=== PATIENT | male | born 1960 | race African-American/Black ===

== ENCOUNTER 2018-03-23 11:39 | Inpatient (IN) ==
[2018-03-23] MEDS ORDERED: *HR* FentaNYL (PF) 100 MCG/2 ML VIAL IVP ONE (11:46)
[2018-03-23] MEDS ORDERED: Isovue-370 500 ML INFUS..BTL IV ONE (11:46)
--- NOTE | 2018-03-23 12:04 | Emergency Department Note ---
Disposition Clinical Impression: Small bowel obstruction Abdominal pain Qualifiers: Abdominal location: right lower quadrant Qualified Code(s): R10.31 - Right lower quadrant pain Disposition: Admitted As Inpatient Condition: Good Referrals: Heriberto Whittington MD [Primary Care Provider] - Forms: ED Satisfaction Letter, Work/School Release Time of Disposition: 15:46 General Adult HPI - General Chief complaint: ED Abdominal Pain Stated complaint: Abdominal Pain Time Seen by Provider: 03/23/18 11:45 Source: EMS Mode of arrival: EMS Limitations: no limitations - History of Present Illness HPI Narrative: This is a 57-year-old male brought by EMS from the [facility] because of significant abdominal pain. He has a history of esophageal cancer, and had a PEG tube placed yesterday. It appears that his right lower quadrant pain has developed or worsened since the PEG tube was placed. Pain Scale: 10 - Related Data Home Medications Medication Instructions Recorded Confirmed Aspirin [Lo-Dose Aspirin EC] 81 mg PO DAILY 01/27/18 03/23/18 Previous Rx's Medication Instructions Recorded HydrOXYzine Pamoate [Vistaril] 50 mg PO DAILY PRN #30 capsule 03/08/18 OxyCODONE/APAP 5/325 [Percocet 1 each PO Q8HR PRN 30 Days #90 03/08/18 5/325 MG] tablet Dexamethasone [Decadron] 4 mg PO BID PRN #42 tab 03/12/18 Magic Mouthwash [Magic Mouthwash 10 ml PO QID PRN #240 ml 03/12/18 BLM] Ondansetron [Zofran ODT] 8 mg SL Q8H PRN #60 tab 03/12/18 Prochlorperazine Maleate 10 mg PO Q6HR PRN #90 tablet 03/12/18 [Compazine] Allergies Allergy/AdvReac Type Severity Reaction Status Date / Time acetaminophen [From Vicodin] AdvReac Nausea Verified 03/23/18 08:12 hydrocodone [From Vicodin] AdvReac Nausea Verified 03/23/18 08:12 All systems ED: reviewed and negative except as stated. Gastrointestinal: Reports: abdominal pain Past Medical History - Past Medical History Medical history: Reports: cancer Psychiatric history: Reports: no psych history - Social History Smoking Status: Former smoker Smokeless Tobacco Status: No Alcohol use: Reports: occasionally Drug use: Reports: marijuana Physical Exam - General Limitations: no limitations General appearance: alert, in distress (In moderate distress from abdominal pain ) - Head Head exam: atraumatic, normocephalic, normal inspection - Eye Eye exam: Present: normal appearance, PERRL, EOMI - Chest Chest inspection: Present: normal inspection, symmetric chest wall rise - Respiratory Respiratory exam: Present: normal lung sounds bilaterally - Cardiovascular Cardiovascular exam: Present: normal rhythm, bradycardia, normal heart sounds - Abdominal Exam Abdominal exam: Present: soft, tenderness (There is diffuse abdominal tenderness but the right lower quadrant appears to be the worst, also with left lower quadrant tenderness and much less upper quadrant tenderness) - Extremities Exam Extremities exam: Present: normal inspection, full ROM. Absent: tenderness, pedal edema - Neurological Exam Neurological exam: Present: alert, oriented X3, CN II-XII intact - Psychiatric Psychiatric exam: Present: normal affect, normal mood - Skin Skin exam: Present: warm, dry, intact, normal color Course Course Narrative: This is a 57-year-old male with a new PEG tube placed yesterday now with significant right lower quadrant tenderness concerning for new pathology or iatrogenic injury. Vital Signs Temperature 97.9 F 03/23/18 11:43 Pulse Rate 56 03/23/18 11:43 Respiratory Rate 18 03/23/18 11:43 Blood Pressure 139/89 03/23/18 11:43 O2 Sat by Pulse Oximetry 97 03/23/18 11:43 Temperature 97.9 F 03/23/18 11:43 Pulse Rate 56 03/23/18 11:43 Respiratory Rate 18 03/23/18 11:43 Blood Pressure 139/89 03/23/18 11:43 O2 Sat by Pulse Oximetry 97 03/23/18 11:43 Oxygen Delivery Oxygen Delivery Room Air Medical Decision Making - MDM Narrative Medical decision making narrative: This is a 57-year-old male who appears to have a possible small bowel obstruction. I discussed his case with the on-call hospitalist, who accepted him for admission I discussed his case with Dr. Nichols, the on-call surgeon, who stated that he will see him. - Lab Data Lab results reviewed: Yes I reviewed the patient's lab results. Lab results narrative: CBC was unremarkable BMP showed slight hyponatremia at 132 Lactate was normal at 0.9 Result diagrams: 03/23/18 11:56 03/23/18 11:56 Lab Results 03/23/18 03/23/18 03/23/18 Range/Units 11:56 11:56 11:56 WBC 8.6 (4.3-11.1) K/mcL RBC 4.70 (4.19-5.50) M/mcL Hgb 13.8 (12.9-16.9) g/dL Hct 42.4 (37.5-50.1) % MCV 90.2 (83.0-100.0) fL MCH 29.4 (28.0-33.3) pg MCHC 32.5 (31.6-35.5) g/dL RDW 13.3 (11.5-14.5) % Plt Count 246 (140-400) K/mcL MPV 8.6 L (9.4-12.4) fL Immature Gran % 0.4 (0-4) % Seg Neutrophils % 86.3 % Lymphocytes % 9.4 % Monocytes % 3.5 % Eosinophils % 0.2 % Basophils % 0.2 % Neutrophils # 7.4 (1.6-8.9) K/mcL Lymphocytes # 0.8 (0.6-4.6) K/mcL Monocytes # 0.3 (0.0-1.3) K/mcL Eosinophils # 0.0 (0.0-0.6) K/mcL Basophils # 0.0 (0.0-0.2) K/mcL Sodium 132 L (136-145) mEq/L Potassium 4.4 (3.5-5.1) mEq/L Chloride 101 (98-107) mEq/L Carbon Dioxide 26 (23-29) mEq/L BUN 19 (6-20) mg/dL Creatinine 0.81 (0.70-1.30) mg/dL Est GFR ( Amer) > 60 (> 60) Est GFR (Non-Af Amer) > 60 (> 60) BUN/Creatinine Ratio 23 (6-26) Glucose 185 H (70-105) mg/dL Calculated Osmolality 281 (280-300) Lactic Acid 0.9 (0.5-2.2) mmol/L Calcium 9.3 (8.6-10.3) mg/dL - Radiology Data Radiology results reviewed: Yes I reviewed the patient's radiology results. CT was concerning for a partial small bowel obstruction with no transition point Critical Care Time Critical Care Time: No
[2018-03-23 12:09] LABS: Basophils % 0.2 %; Eosinophils % 0.2 %; Hematocrit 42.4 % (37.5-50.1); Hemoglobin 13.8 g/dL (12.9-16.9); Immature Granulocytes % 0.4 % (0-4); Lymphocytes # 0.8 K/mcL (0.6-4.6); Lymphocytes % 9.4 %; Mean Corpuscular HGB Conc 32.5 g/dL (31.6-35.5); Mean Corpuscular Hemoglobin 29.4 pg (28.0-33.3); Mean Corpuscular Volume 90.2 fL (83.0-100.0); Mean Platelet Volume 8.6 fL (9.4-12.4); Monocytes # 0.3 K/mcL (0.0-1.3); Monocytes % 3.5 %; Neutrophils # 7.4 K/mcL (1.6-8.9); Platelet Count 246 K/mcL (140-400); Red Cell Distribution Width 13.3 % (11.5-14.5); Segmented Neutrophils % 86.3 %
[2018-03-23 12:29] LABS: BUN/Creatinine Ratio 23 (6-26); Blood Urea Nitrogen 19 mg/dL (6-20); Calcium 9.3 mg/dL (8.6-10.3); Carbon Dioxide 26 mEq/L (23-29); Chloride 101 mEq/L (98-107); Glucose 185 mg/dL (70-105); Osmolality,Calculated 281 (280-300); Potassium 4.4 mEq/L (3.5-5.1); Sodium 132 mEq/L (136-145); eGFR For Non-African Americans > 60 (> 60)
[2018-03-23] MEDS ORDERED: Naloxone 0.4 MG/ML INJ IVP PRN (16:57)
[2018-03-23] MEDS ORDERED: Acetaminophen 325 MG TABLET PO PRN (16:57)
[2018-03-23] MEDS ORDERED: *HR* OxyCODONE Immed Rel 5 MG TABLET PO PRN (16:57)
[2018-03-23] MEDS ORDERED: *HR* HYDROcodone/Acet 5/325 mg TABLET PO PRN (16:57)
[2018-03-23] MEDS ORDERED: Ondansetron 4 MG/2 ML VIAL IVP PRN (17:08)
[2018-03-23] MEDS ORDERED: Ketorolac 30 MG/ML VIAL IVP PRN (17:08)
[2018-03-23] MEDS ORDERED: Magic Mouthwash 10 ML UD Cup PO PRN (17:15)
[2018-03-23] MEDS ORDERED: hydrOXYzine pamoate 25 MG CAPSULE PO PRN (17:15)
--- NOTE | 2018-03-23 17:44 | Internal Med History&Physical ---
<Esperanza Rhoades - Last Filed: 03/23/18 17:40> Date of Encounter: 03/23/18 Time of Encounter: 04:30 Internal Medicine - H&P: HPI Chief complaint: Abdominal pain History of present illness: Mr. Carrillo is a 57 year old male with past medical history of laryngeal squamous cell carcinoma diagnosed 02/04/18. Denies any other medical history. Patient presented from [facility] to ED for severe abdominal pain. Patient states the pain started yesterday after PEG tube placement and progressively worsened. Reports it is sharp pain 8/10 that worsens with movement. Indicates pain at infraumbilical region. Patient has passed gas but had no bowel movements since PEG placement. Reports has not eaten since PEG placement. Admits one episode of emesis. Admits feeling bloated. Admits dry mouth. Denies nausea. Denies bleeding. Denies weakness, dizziness. Denies shortness of breath. Past Med Surg Social Fam HX - Past Medical History Medical history: cancer Additional medical history: throat CA Psychiatric history: no psych history - Past Surgical History Additional surgical history: g tube placement. sinus surgery - Social History Smoking Status: Former smoker Smokeless Tobacco Status: No Alcohol use: occasionally Drug use: marijuana Internal Medicine - H&P: Meds Aspirin [Lo-Dose Aspirin EC] 81 mg PO DAILY 01/27/18 [History] HydrOXYzine Pamoate [Vistaril] 50 mg PO DAILY PRN #30 capsule 03/08/18 [Rx] OxyCODONE/APAP 5/325 [Percocet 5/325 MG] 1 each PO Q8HR PRN 30 Days #90 tablet 03/08/18 [Rx] Dexamethasone [Decadron] 4 mg PO BID PRN #42 tab 03/12/18 [Rx] Magic Mouthwash [Magic Mouthwash BLM] 10 ml PO QID PRN #240 ml 03/12/18 [Rx] Ondansetron [Zofran ODT] 8 mg SL Q8H PRN #60 tab 03/12/18 [Rx] Prochlorperazine Maleate [Compazine] 10 mg PO Q6HR PRN #90 tablet 03/12/18 [Rx] 3 Allergy/AdvReac Type Severity Reaction Status Date / Time acetaminophen [From Vicodin] AdvReac Nausea Verified 03/23/18 08:12 hydrocodone [From Vicodin] AdvReac Nausea Verified 03/23/18 08:12 All Systems PM: A 10-system review of systems was performed and is negative for pertinent findings except as documented above in the HPI. Review of systems: ROS stated above. - Constitutional Vitals: Temp Pulse Resp BP Pulse Ox 97.9 F 56 18 139/89 97 03/23/18 11:43 03/23/18 11:43 03/23/18 11:43 03/23/18 11:43 03/23/18 11:43 Exam: General: Normal body habitus. Alert and oriented x3. No acute distress. Head: atraumatic, normocephalic. Eye: pupils equal and round. Sclera anicteric. EOMI. Mouth: oral mucosa moist. Normal oropharynx. Neck: supple. Trachea midline. Lungs: CTAB. No rhonchi, rales or wheezes. No respiratory distress. Cardiovascular: Normal S1 & S2. No rubs or gallops. No JVD. Pulse regular. Abdomen: Soft. Normal bowel sounds. Nondistended, no rigidity. Diffusely tender to palpation, worst at RUQ. No rebound. Extremities: No deformity, edema or tenderness, no joint swelling or clubbing. Skin: warm, dry, and intact. Internal Med - H&P Results - Labs CBC & Chem 7: 03/23/18 11:56 03/23/18 11:56 - Assessment and plan (1) Small bowel obstruction Current Visit: Yes Status: Acute Assessment and plan: Presented with abdominal pain after PEG tube placement 03/22. Lactic acid normal. CT abd/pelvis showed multiple dilated jejunal loops. Partial obstruction from internal hernia vs ileus. Trace pneumoperitoneum. PEG tube in place. Surgery consulted. Await recommendation. NPO. IVF. Pain control. (2) Laryngeal cancer Current Visit: No Status: Acute Assessment and plan: Laryngeal squamous cell carcinoma diagnosed 02/04/18. History of smoking. Recently quit. Follows at [facility]. Had first chemotherapy treatment with cisplastin on 03/23. First radiation treatment scheduled for 03/24. (3) Abdominal pain Current Visit: Yes Status: Acute Assessment and plan: Secondary to SBO. See above. Qualifiers: Abdominal location: lower abdomen, unspecified Qualified Code(s): R10.30 - Lower abdominal pain, unspecified - Time Spent With Patient Total time spent is greater than 50% in coordination of care (as documented) at patient's floor/unit and/or counseling patient: <Huseyin Andrade - Last Filed: 03/23/18 18:02> Date of Encounter: 03/23/18 Internal Medicine - H&P: [facility] History of present illness: Mr. Carrillo is a 57 year old male All Systems PM: A 10-system review of systems was performed and is negative for pertinent findings except as documented above in the HPI. - Constitutional Vitals: Temp Pulse Resp BP Pulse Ox 97.9 F 56 18 112/70 97 03/23/18 11:43 03/23/18 11:43 03/23/18 17:42 03/23/18 17:42 03/23/18 11:43 Internal Med - H&P Results - Labs CBC & Chem 7: 03/23/18 11:56 03/23/18 11:56 - Assessment and plan (1) Laryngeal cancer Current Visit: No Status: Acute (2) Small bowel obstruction Current Visit: Yes Status: Acute (3) Abdominal pain Current Visit: Yes Status: Acute Qualifiers: Abdominal location: lower abdomen, unspecified Qualified Code(s): R10.30 - Lower abdominal pain, unspecified - Time Spent With Patient Total time spent is greater than 50% in coordination of care (as documented) at patient's floor/unit and/or counseling patient: - Attending Attestation Seen and assessed. Agree with plan per resident 57-year-old male brought by EMS from the cancer center because of significant abdominal pain. He has a history of esophageal cancer, and had a PEG tube placed yesterday. It appears that his right lower quadrant pain has developed or worsened since the PEG tube was placed. Exam General: Normal body habitus. Alert and oriented x3. No acute distress. Head: atraumatic, normocephalic. Eye: pupils equal and round. Sclera anicteric. EOMI. Mouth: oral mucosa moist. Normal oropharynx. Neck: supple. Trachea midline. Lungs: CTAB. No rhonchi, rales or wheezes. No respiratory distress. Cardiovascular: Normal S1 & S2. No rubs or gallops. No JVD. Pulse regular. Abdomen: Soft. Normal bowel sounds. Nondistended, no rigidity. Diffusely tender to palpation, worst at RUQ. No rebound. Extremities: No deformity, edema or tenderness, no joint swelling or clubbing. Plan Small bowel obstruction. NPO, IV fluids. Follow surgery recs DVT prophylaxis. Heparin
[2018-03-23] MEDS: *HR* Heparin 5,000 UNIT/ML VIAL SQ SCH (18:49)
[2018-03-23] MEDS: 0.9 % Sodium Chloride 1,000 ML IVC SCH (18:49)
[2018-03-23] MEDS: OXYCODONE Oral CONC 10 MG/0.5 ML ORAL.SYG SL PRN (18:59)
[2018-03-24] MEDS: OXYCODONE Oral CONC 10 MG/0.5 ML ORAL.SYG SL PRN ×4 (01:33→23:34)
[2018-03-24] MEDS: 0.9 % Sodium Chloride 1,000 ML IVC SCH (02:59)
[2018-03-24] MEDS: *HR* Heparin 5,000 UNIT/ML VIAL SQ SCH ×2 (06:04→18:39)
[2018-03-24] MEDS: Aspirin Enteric Coated 81 MG Tablet PO SCH (08:35)
[2018-03-24 08:42] LABS: Basophils % 0.1 %; Hematocrit 37.7 % (37.5-50.1); Hemoglobin 12.5 g/dL (12.9-16.9); Immature Granulocytes % 0.3 % (0-4); Lymphocytes # 2.1 K/mcL (0.6-4.6); Lymphocytes % 18.7 %; Mean Corpuscular HGB Conc 33.2 g/dL (31.6-35.5); Mean Corpuscular Hemoglobin 29.4 pg (28.0-33.3); Mean Corpuscular Volume 88.7 fL (83.0-100.0); Mean Platelet Volume 9.1 fL (9.4-12.4); Monocytes # 1.2 K/mcL (0.0-1.3); Monocytes % 10.9 %; Neutrophils # 7.8 K/mcL (1.6-8.9); Platelet Count 248 K/mcL (140-400); Red Blood Count 4.25 M/mcL (4.19-5.50); Red Cell Distribution Width 13.3 % (11.5-14.5)
[2018-03-24 08:59] LABS: BUN/Creatinine Ratio 25 (6-26); Blood Urea Nitrogen 19 mg/dL (6-20); Calcium 8.9 mg/dL (8.6-10.3); Carbon Dioxide 27 mEq/L (23-29); Chloride 105 mEq/L (98-107); Glucose 116 mg/dL (70-105); Magnesium 2.1 mg/dL (1.6-2.6); Osmolality,Calculated 283 (280-300); Phosphorous 2.5 mg/dL (2.7-4.5); Potassium 4.2 mEq/L (3.5-5.1); Sodium 135 mEq/L (136-145); eGFR For Non-African Americans > 60 (> 60)
--- NOTE | 2018-03-24 09:11 | Internal Med Progress Note ---
<Efren Bush - Last Filed: 03/24/18 09:58> Hospitalist Progress Note - Encounter Date of Encounter: 03/24/18 Time of Encounter: 09:10 - Subjective Interval History: 57 y/o pleasant male is seen and evaluated at bedside. Pt is A&Ox3 and has improved energy. Pt reports significantly lessened pain in his abdomen, mostly localized to the LUQ slightly exacerbated by movement. Pt denies nausea, vomiting, or dizziness. Surgical Consult Pending Pt is NPO - Exam Vitals: Temp Pulse Resp BP Pulse Ox 98.4 F 60 18 113/65 95 03/24/18 06:28 03/24/18 06:28 03/24/18 06:28 03/24/18 06:28 03/24/18 06:28 Exam: General: Pt appears fatigued with normal body habitus. Head: Normocephalic. Atraumatic. Mouth: Mouth appears dry. Normal oropharynx CV: RRR. No murmurs rubs or gallops. Lungs: CTAB. No rhonchi or rales. No respiratory distress Abdomen: Bowel sounds present. Pain on palpation of the upper left quadrant. No distention. Extremities: No edema noted. Pulses 2+ Skin: Dry and Intact. No lesions or bruising noted. - Assessment and Plan (1) Small bowel obstruction Current Visit: Yes Status: Acute Assessment and Plan: Pt presented with increasing abdominal pain starting (03/22) after placement of PEG tube for chemo tx Pain is localized to lower regions of the abdomen and worsens with movement Lactic Acid WNL (0.9) CT of abdomen and pelvis depicted multiple dilated jejunal loops and a PEG tube in place indicative of likely small bowel obstruction Plan: Pt NPO Surgery has been consulted. Awaiting recs. Supplement with IVF Pain management with Toradol 30mg IVP Q6H (2) Laryngeal cancer Current Visit: No Status: Acute Assessment and Plan: Laryngeal Squamous Cell Ca Dx 02/04/18 Pt tx at [facility] Cisplatin tx started (03/23) Radiation tx was scheduled for (03/24) but pt did not receive Pt has hx of smoking since age 19 however has recently quit (3) Abdominal pain Current Visit: Yes Status: Acute Assessment and Plan: Likely secondary to SBO - Time Spent with Patient Total time spent is greater than 50% in coordination of care (as documented) at patient's floor/unit and/or counseling patient: Greater than 35 minutes Plan of Care Discussed with: patient Internal Medicine: Result - Labs CBC & Chem 7: 03/24/18 08:08 03/24/18 08:08 Labs: Short CBC 03/24/18 Range/Units 08:08 WBC 11.1 (4.3-11.1) K/mcL Hgb 12.5 L (12.9-16.9) g/dL Hct 37.7 (37.5-50.1) % Plt Count 248 (140-400) K/mcL Neutrophils # 7.8 (1.6-8.9) K/mcL BMP 03/24/18 08:08 Sodium 135 L Potassium 4.2 Chloride 105 Carbon Dioxide 27 BUN 19 Creatinine 0.75 Glucose 116 H Calcium 8.9 Consult Discharge Plan - Plan Referrals: Heriberto Whittington MD [Primary Care Provider] - Jean David MD [Partnered Physician] - 03/29/18 8:45 am <Huseyin Andrade - Last Filed: 03/24/18 13:58> Hospitalist Progress Note - Encounter Date of Encounter: 03/24/18 - Exam Vitals: Temp Pulse Resp BP Pulse Ox 97.6 F 58 17 127/61 95 03/24/18 10:09 03/24/18 10:09 03/24/18 10:09 03/24/18 10:09 03/24/18 10:09 - Assessment and Plan (1) Laryngeal cancer Current Visit: No Status: Acute (2) Small bowel obstruction Current Visit: Yes Status: Acute (3) Abdominal pain Current Visit: Yes Status: Acute - Time Spent with Patient Total time spent is greater than 50% in coordination of care (as documented) at patient's floor/unit and/or counseling patient: Internal Medicine: Result - Labs CBC & Chem 7: 03/24/18 08:08 03/24/18 08:08 Labs: Short CBC 03/24/18 Range/Units 08:08 WBC 11.1 (4.3-11.1) K/mcL Hgb 12.5 L (12.9-16.9) g/dL Hct 37.7 (37.5-50.1) % Plt Count 248 (140-400) K/mcL Neutrophils # 7.8 (1.6-8.9) K/mcL BMP 03/24/18 08:08 Sodium 135 L Potassium 4.2 Chloride 105 Carbon Dioxide 27 BUN 19 Creatinine 0.75 Glucose 116 H Calcium 8.9 - Attending Attestation 57 year old male with past medical history of laryngeal squamous cell carcinoma diagnosed 02/04/18. Denies any other medical history. Patient presented from [facility] to ED for severe abdominal pain. Patient states the pain started yesterday after PEG tube placement and progressively worsened. Reports it is sharp pain 01/22 that worsens with movement General: Normal body habitus. Alert and oriented x3. No acute distress. Head: atraumatic, normocephalic. Eye: pupils equal and round. Sclera anicteric. EOMI. Mouth: oral mucosa moist. Normal oropharynx. Neck: supple. Trachea midline. Lungs: CTAB. No rhonchi, rales or wheezes. No respiratory distress. Cardiovascular: Normal S1 & S2. No rubs or gallops. No JVD. Pulse regular. Abdomen: Soft. Normal bowel sounds. Nondistended, no rigidity. Diffusely tender to palpation, worst at RUQ. No rebound. Extremities: No deformity, edema or tenderness, no joint swelling or clubbing. Skin: warm, dry, and intact. Plan Small bowel obstruction. NPO. IV fluids. Follow surgery recs Laryngeal cancer. Outpatient follow up with oncology <Efren Bush - Last Filed: 03/24/18 09:58> (3) Abdominal pain Qualifiers: Abdominal location: lower abdomen, unspecified Qualified Code(s): R10.30 - Lower abdominal pain, unspecified <Huseyin Andrade - Last Filed: 03/24/18 13:58> (3) Abdominal pain Qualifiers: Abdominal location: lower abdomen, unspecified Qualified Code(s): R10.30 - Lower abdominal pain, unspecified
--- NOTE | 2018-03-24 14:06 | General Surgery Consult Note ---
Date of Encounter: 03/24/18 Time of Encounter: 13:30 Assessment and Plan (1) Abdominal pain Current Visit: Yes Status: Acute No clinical evidence of bowel obstruction- patient with normal expected exam, positive flatus, no nausea/vomiting, positive bowel sounds Clear liquid diet Advance to soft diet as tolerated Daily peg tube care Surgery will sign off at this time, thank you for allowing us to participate in the care of this patient. Please call with any further questions/concerns. Qualifiers: Abdominal location: lower abdomen, unspecified Qualified Code(s): R10.30 - Lower abdominal pain, unspecified (2) Laryngeal cancer Current Visit: No Status: Acute Oncology following as outpatient History of Present Illness Consult date: 03/23/18 Reason for consult: abdominal pain Requesting physician: Huseyin Andrade History of present illness: Mr. Carrillo is a 57 year old male with a recent diagnosis of larynx cancer moderately differentiated squamous cell carcinoma. He is s/p G-tube placement with IR on 03/22/18 in preparation for his treatments. He was seen in follow-up in the cancer center on 03/23/18 and was subsequently sent to the ED for evaluation due to abdominal pain. The patient reports that the abdominal pain is located around his feeding tube site. He reports that the pain is betters today. Denies any history of nausea/ vomiting. He is passing flatus regularly. Denies any fevers/chills. Denies any recent changes in bowel habits. He was tolerating a soft diet prior to admission to the hospital. He did have a CT scan complete which was concerning for a PSBO with possible internal hernia. We have been asked to see and evaluate the patient for recommendations. Past Med Surg Social Fam HX - Past Medical History Medical history: cancer (larynx), coronary artery disease Additional medical history: throat CA Psychiatric history: no psych history - Past Surgical History Surgical History: orthopedic, other (left knee surgery, right wrist surgery), other Additional surgical history: g tube placement 03/22/18 with IR. sinus surgery - Social History Smoking Status: Former smoker Smokeless Tobacco Status: No Alcohol use: occasionally Drug use: marijuana Current living situation: Home - Independent Activity Level: Independent ambulation - Family History Mother Hx Family Endocrine Disorder: Yes (Dm) Sister Hx Family Endocrine Disorder: Yes (DM) Medications and Allergies Aspirin [Lo-Dose Aspirin EC] 81 mg PO DAILY 01/27/18 [History] HydrOXYzine Pamoate [Vistaril] 50 mg PO DAILY PRN #30 capsule 03/08/18 [Rx] OxyCODONE/APAP 5/325 [Percocet 5/325 MG] 1 each PO Q8HR PRN 30 Days #90 tablet 03/08/18 [Rx] Dexamethasone [Decadron] 4 mg PO BID PRN #42 tab 03/12/18 [Rx] Magic Mouthwash [Magic Mouthwash BLM] 10 ml PO QID PRN #240 ml 03/12/18 [Rx] Ondansetron [Zofran ODT] 8 mg SL Q8H PRN #60 tab 03/12/18 [Rx] Prochlorperazine Maleate [Compazine] 10 mg PO Q6HR PRN #90 tablet 03/12/18 [Rx] 3 Allergy/AdvReac Type Severity Reaction Status Date / Time acetaminophen [From Vicodin] AdvReac Nausea Verified 03/23/18 08:12 hydrocodone [From Vicodin] AdvReac Nausea Verified 03/23/18 08:12 Review of Systems ROS unobtainable: due to endotracheal tube (in the HPI) All systems PM: The remainder of the systems were reviewed and are negative General Surgery Exam Initial Vital Signs Temp Pulse Resp BP Pulse Ox 97.9 F 56 18 139/89 97 03/23/18 11:43 03/23/18 11:43 03/23/18 11:43 03/23/18 11:43 03/23/18 11:43 - General physical appearance well developed, well nourished, no distress - Eyes PERRL, normal ocular movement - ENT normal mucosa, atraumatic, normocephalic - Neck trachea midline - Respiratory normal respiratory effort, clear to auscultation - Cardiovascular Cardiovascular exam: Present: RRR - Abdomen Abdomen general surgery: Present: bowel sounds present, soft, tender (Around peg tube site (moderately tender), no surrounding erythema or induration, tube secure at 4cm marking; ) - Integumentary Integumentary general surgery: Present: warm and dry - Neurologic Present: CN 2-12 grossly intact - Psychiatric Psychiatric general surgery: Present: appropriate, oriented to person, oriented to place, oriented to time, speech is normal, memory intact Exam Initial Vital Signs Temp Pulse Resp BP Pulse Ox 97.9 F 56 18 139/89 97 03/23/18 11:43 03/23/18 11:43 03/23/18 11:43 03/23/18 11:43 03/23/18 11:43 Results - Labs 03/24/18 08:08 03/24/18 08:08 Abnormal lab results Hgb 12.5 g/dL (12.9-16.9) L 03/24/18 08:08 MPV 9.1 fL (9.4-12.4) L 03/24/18 08:08 Sodium 135 mEq/L (136-145) L 03/24/18 08:08 Glucose 116 mg/dL (70-105) H 03/24/18 08:08 POC Glucose 115 mg/dL (70-99) H 03/24/18 12:03 Phosphorus 2.5 mg/dL (2.7-4.5) L 03/24/18 08:08 Diabetes panel 03/24/18 Range/Units 08:08 Sodium 135 L (136-145) mEq/L Potassium 4.2 (3.5-5.1) mEq/L Chloride 105 (98-107) mEq/L Carbon Dioxide 27 (23-29) mEq/L BUN 19 (6-20) mg/dL Creatinine 0.75 (0.70-1.30) mg/dL Glucose 116 H (70-105) mg/dL Calcium 8.9 (8.6-10.3) mg/dL Calcium panel 03/24/18 Range/Units 08:08 Calcium 8.9 (8.6-10.3) mg/dL Phosphorus 2.5 L (2.7-4.5) mg/dL Pituitary panel 03/24/18 Range/Units 08:08 Sodium 135 L (136-145) mEq/L Potassium 4.2 (3.5-5.1) mEq/L Chloride 105 (98-107) mEq/L Carbon Dioxide 27 (23-29) mEq/L BUN 19 (6-20) mg/dL Creatinine 0.75 (0.70-1.30) mg/dL Glucose 116 H (70-105) mg/dL Calcium 8.9 (8.6-10.3) mg/dL Adrenal panel 03/24/18 Range/Units 08:08 Sodium 135 L (136-145) mEq/L Potassium 4.2 (3.5-5.1) mEq/L Chloride 105 (98-107) mEq/L Carbon Dioxide 27 (23-29) mEq/L BUN 19 (6-20) mg/dL Creatinine 0.75 (0.70-1.30) mg/dL Glucose 116 H (70-105) mg/dL Calcium 8.9 (8.6-10.3) mg/dL All other labs normal. - Imaging CT scan - abdomen: report reviewed CT scan - pelvis: report reviewed Additional studies: Abdomen/Pelvis CT 03/23/18 11:46 IMPRESSION: 1. Multiple dilated jejunal loops with suggestion of swirling of the small bowel mesentery on the left, potentially related to partial obstruction in the setting of an internal hernia. Alternatively, this could be related to developing ileus. No definite transition point is identified. 2. Percutaneous gastrostomy catheter in expected position. Trace pneumoperitoneum is likely related. 3. Minimal asymmetric enlargement of the superior left rectus abdominis muscle with associated tiny foci of gas, likely related to tube placement. No definite hematoma is identified. 4. Trace free fluid may be reactive. D/ / Rashawn Whipple MD / Rashawn Whipple MD Interpreting Provider: Rashawn Whipple MD Consult Discharge Plan - Plan Referrals: Heriberto Whittington MD [Primary Care Provider] - Jean David MD [Partnered Physician] - 03/29/18 8:45 am - Attending Attestation For this encounter, I have reviewed the [employer] or PA documentation, treatment plan, and medical decision making; and I have had face to face time with this patient.
[2018-03-25] MEDS: *HR* Heparin 5,000 UNIT/ML VIAL SQ SCH ×2 (06:07→19:12)
[2018-03-25] MEDS: Aspirin Enteric Coated 81 MG Tablet PO SCH (08:08)
[2018-03-25 08:32] LABS: Basophils % 0.5 %; Eosinophils # 0.1 K/mcL (0.0-0.6); Eosinophils % 0.8 %; Hematocrit 37.6 % (37.5-50.1); Hemoglobin 12.2 g/dL (12.9-16.9); Immature Granulocytes % 0.3 % (0-4); Lymphocytes # 2.8 K/mcL (0.6-4.6); Lymphocytes % 43.7 %; Mean Corpuscular HGB Conc 32.4 g/dL (31.6-35.5); Mean Corpuscular Hemoglobin 29.6 pg (28.0-33.3); Mean Corpuscular Volume 91.3 fL (83.0-100.0); Mean Platelet Volume 8.8 fL (9.4-12.4); Monocytes % 15.2 %; Neutrophils # 2.5 K/mcL (1.6-8.9); Platelet Count 233 K/mcL (140-400); Red Blood Count 4.12 M/mcL (4.19-5.50); Red Cell Distribution Width 13.2 % (11.5-14.5); Segmented Neutrophils % 39.5 %
--- NOTE | 2018-03-25 08:38 | Internal Med Progress Note ---
Hospitalist Progress Note - Encounter Date of Encounter: 03/25/18 Time of Encounter: 08:15 - Subjective Interval History: Patient seen and examined. No acute events overnight. Patient is resting comfortably in bed. Patient states he feels better. States he doesnt have abdominal pain but that hes sore at PEG tube site at level of 5/10. States he s passing gas. Had a bowel movement last night. He is on clear liquid diet which he is tolerating well. Denies nausea/vomiting. Denies fever/chills. - Exam Vitals: Temp Pulse Resp BP Pulse Ox 98.5 F 58 16 122/78 96 03/25/18 07:37 03/25/18 07:37 03/25/18 07:37 03/25/18 07:37 03/25/18 07:37 Exam: General: Normal body habitus. Alert and oriented x3. No acute distress. Head: atraumatic, normocephalic. Eye: pupils equal and round. Sclera anicteric. EOMI. Mouth: oral mucosa moist. Normal oropharynx. Neck: supple. Trachea midline. Lungs: CTAB. No rhonchi, rales or wheezes. No respiratory distress. Cardiovascular: Normal S1 & S2. No rubs or gallops. No JVD. Pulse regular. Abdomen: Soft. Normal bowel sounds. Nondistended, no rigidity. Diffusely tender to palpation, worst at LUQ. No rebound. PEG tube in place with dressing, no evidence of drainage, bleeding, or purulence. Extremities: No deformity, edema or tenderness, no joint swelling or clubbing. Skin: warm, dry, and intact. - Assessment and Plan (1) Small bowel obstruction Current Visit: Yes Status: Acute (2) Abdominal pain Current Visit: Yes Status: Acute (3) Laryngeal cancer Current Visit: No Status: Acute - Time Spent with Patient Total time spent is greater than 50% in coordination of care (as documented) at patient's floor/unit and/or counseling patient: Internal Medicine: Result - Labs CBC & Chem 7: 03/24/18 08:08 03/24/18 08:08 Labs: Short CBC 03/24/18 Range/Units 08:08 WBC 11.1 (4.3-11.1) K/mcL Hgb 12.5 L (12.9-16.9) g/dL Hct 37.7 (37.5-50.1) % Plt Count 248 (140-400) K/mcL Neutrophils # 7.8 (1.6-8.9) K/mcL BMP 03/24/18 08:08 Sodium 135 L Potassium 4.2 Chloride 105 Carbon Dioxide 27 BUN 19 Creatinine 0.75 Glucose 116 H Calcium 8.9 Consult Discharge Plan - Plan Referrals: [facility] [Other] - 03/29/18 8:00 am Heriberto Whittington MD [Primary Care Provider] - Jean David MD [Partnered Physician] - 03/29/18 8:45 am (2) Abdominal pain Qualifiers: Abdominal location: lower abdomen, unspecified Qualified Code(s): R10.30 - Lower abdominal pain, unspecified
[2018-03-25 08:54] LABS: BUN/Creatinine Ratio 20 (6-26); Blood Urea Nitrogen 17 mg/dL (6-20); Carbon Dioxide 27 mEq/L (23-29); Chloride 105 mEq/L (98-107); Glucose 103 mg/dL (70-105); Osmolality,Calculated 286 (280-300); Potassium 3.7 mEq/L (3.5-5.1); Sodium 137 mEq/L (136-145); eGFR For Non-African Americans > 60 (> 60)
--- NOTE | 2018-03-25 10:10 | Discharge Summary ---
<Efren Bush S - Last Filed: 03/25/18 10:23> Date of Encounter: 03/25/18 Time of Encounter: 10:07 - Discharge Diagnosis (1) Small bowel obstruction Priority: Primary Status: Acute (2) Laryngeal cancer Priority: Primary Status: Acute (3) Abdominal pain Priority: Primary Status: Acute Qualifiers: Abdominal location: lower abdomen, unspecified Qualified Code(s): R10.30 - Lower abdominal pain, unspecified Hospital course: Mr. 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 Pain was accompanied by one episode of emesis but no nausea. Pt had passed gas and felt bloated but had no bowel movements. Pt denied any bleeding, dizziness, or SOB. Abdominal CT taken at the time was suspicious for SBO with many dilated loops in the jejunum. Surgical consult (03/24) found no indications for SBO and therefore intervention is not indicated. Pt started a liquid diet (03/24) and tolerated it fairly well. Pt has progressed up to soft foods (03/25) which is what his diet typically is. Today pt denies N/V, diarrhea, CP, fatigue, dysphagia, or dizziness. Pt has successfully passed one well formed bowel movement (03/25). Assessment and Plan Small Bowel Obstruction Pt on soft food diet which was his typical diet prior to admission Laryngeal Cancer Resume chemo/radiation treatment at [facility] following d/c Discharge discussed with: patient Time spent discussing smoking cessation with patient: more than 10 minutes - Time Spent with Patient Total time spent providing and/or coordinating discharge services: Greater than 30 minutes - Discharge Medications Home Medications: Aspirin [Lo-Dose Aspirin EC] 81 mg PO DAILY 01/27/18 [History] HydrOXYzine Pamoate [Vistaril] 50 mg PO DAILY PRN #30 capsule 03/08/18 [Rx] OxyCODONE/APAP 5/325 [Percocet 5/325 MG] 1 each PO Q8HR PRN 30 Days #90 tablet 03/08/18 [Rx] Dexamethasone [Decadron] 4 mg PO BID PRN #42 tab 03/12/18 [Rx] Magic Mouthwash [Magic Mouthwash BLM] 10 ml PO QID PRN #240 ml 03/12/18 [Rx] Ondansetron [Zofran ODT] 8 mg SL Q8H PRN #60 tab 03/12/18 [Rx] Prochlorperazine Maleate [Compazine] 10 mg PO Q6HR PRN #90 tablet 03/12/18 [Rx] Allergies/Adverse Reactions: 3 Allergy/AdvReac Type Severity Reaction Status Date / Time acetaminophen [From Vicodin] AdvReac Nausea Verified 03/23/18 08:12 hydrocodone [From Vicodin] AdvReac Nausea Verified 03/23/18 08:12 Date of admission: 03/23/18 16:59 Primary care physician: Heriberto Whittington MD Consults: 03/23/18 18:29 Consult to Surgery [CONS] Routine Consulting Provider: [facility] Reason for Consult: small bowel obstruction Call Completed: Yes 03/23/18 18:39 Consult to Nutrition [CONS] Routine Comment: Consulting Provider: NUTRITION Reason for Dietary Consult: MST Score - Constitutional Vitals: Temp Pulse Resp BP Pulse Ox 98.5 F 58 16 122/78 96 03/25/18 07:37 03/25/18 07:37 03/25/18 07:37 03/25/18 07:37 03/25/18 07:37 Exam: General: normal body habitus. Head: Normocephalic. Atraumatic. CV: RRR. No murmurs rubs or gallops. Lungs: CTAB. No rhonchi or rales. Pt does not appear to be in respiratory distress. Abdomen: Bowel sounds present 4/4 quadrants. Pain on palpation of the upper left quadrant. No distention. Extremities: No edema noted. Pulses 2+ throughout Skin: Dry and Intact. No lesions or bruising noted. - Patient Status Disposition: Home, Self-Care - Discharge [facility] - 03/29/18 8:00 am Heriberto Whittington MD [Primary Care Provider] - Jean David MD [Partnered Physician] - 03/29/18 8:45 am <Huseyin Andrade - Last Filed: 03/25/18 17:27> Date of Encounter: 03/25/18 - Discharge Diagnosis (1) Laryngeal cancer Status: Acute (2) Small bowel obstruction Status: Acute (3) Abdominal pain Status: Acute Qualifiers: Abdominal location: lower abdomen, unspecified Qualified Code(s): R10.30 - Lower abdominal pain, unspecified Hospital course: Mr. Carrillo is a 57 year old male - Time Spent with Patient Total time spent providing and/or coordinating discharge services: Date of admission: 03/23/18 16:59 Primary care physician: Heriberto Whittington MD Consults: 03/23/18 18:29 Consult to Surgery [CONS] Routine Consulting Provider: [facility] Reason for Consult: small bowel obstruction Call Completed: Yes 03/23/18 18:39 Consult to Nutrition [CONS] Routine Comment: Consulting Provider: NUTRITION Reason for Dietary Consult: MST Score - Constitutional Vitals: Temp Pulse Resp BP Pulse Ox 98.1 F 57 16 129/75 97 03/25/18 14:00 03/25/18 14:00 03/25/18 14:00 03/25/18 14:00 03/25/18 14:00 - Attending Attestation General: Pt appears fatigued with normal body habitus. Head: Normocephalic. Atraumatic. Mouth: Mouth appears dry. Normal oropharynx CV: RRR. No murmurs rubs or gallops. Lungs: CTAB. No rhonchi or rales. No respiratory distress Abdomen: Bowel sounds present. Pain on palpation of the upper left quadrant. No distention. Extremities: No edema noted. Pulses 2+ Skin: Dry and Intact. No lesions or bruising noted. Came in for small bowel obstruction s/p G tube placement that resolved with supportive management. Patient was seen by surgery and was stable and tolerating diet on discharge. Agree with discharge summary as above
[2018-03-25] MEDS: OXYCODONE Oral CONC 10 MG/0.5 ML ORAL.SYG SL PRN ×2 (11:34→16:02)
[2018-03-26] MEDS: *HR* Heparin 5,000 UNIT/ML VIAL SQ SCH (06:22)
--- NOTE | 2018-03-26 08:06 | Physician Discharge Referral ---
<Esperanza Rhoades - Last Filed: 03/26/18 08:04> Home Health/Hosp Referral Info Transfer to: Home Health Attending Provider: Dr. Andrade Provider in Charge Post Discharge: PCP - Diagnosis (1) Small bowel obstruction Priority: Primary Status: Acute (2) Abdominal pain Priority: Primary Status: Acute (3) Laryngeal cancer Priority: Secondary Status: Acute - Respiratory Orders Smoking Cessation: Smoking cessation has been advised. For more information, call the [place] Tobacco Quit Line at 7-277-UCJF-NOW. - Transfer Medications Home Medications: Aspirin [Lo-Dose Aspirin EC] 81 mg PO DAILY 01/27/18 [History] HydrOXYzine Pamoate [Vistaril] 50 mg PO DAILY PRN #30 capsule 03/08/18 [Rx] OxyCODONE/APAP 5/325 [Percocet 5/325 MG] 1 each PO Q8HR PRN 30 Days #90 tablet 03/08/18 [Rx] Dexamethasone [Decadron] 4 mg PO BID PRN #42 tab 03/12/18 [Rx] Magic Mouthwash [Magic Mouthwash BLM] 10 ml PO QID PRN #240 ml 03/12/18 [Rx] Ondansetron [Zofran ODT] 8 mg SL Q8H PRN #60 tab 03/12/18 [Rx] Prochlorperazine Maleate [Compazine] 10 mg PO Q6HR PRN #90 tablet 03/12/18 [Rx] Allergies/Adverse Reactions: 3 Allergy/AdvReac Type Severity Reaction Status Date / Time acetaminophen [From Vicodin] AdvReac Nausea Verified 03/23/18 08:12 hydrocodone [From Vicodin] AdvReac Nausea Verified 03/23/18 08:12 Certification: Further, I certify that my clinical findings support that this patient is homebound (i.e. absences from home require considerable and taxing effort and are for medical reasons or buddhist services or infrequently or short duration when for other reasons) because: Homebound Reason: Patient requires assistance of a person or device to safely leave home Attestation: My signature below is to certify that this patient is under my care and that I, or nurse practitioner, or a physician's assistant refinery operator working with me, has a face-to -face encounter with this patient. <Huseyin Andrade - Last Filed: 03/26/18 17:35> - Diagnosis (1) Small bowel obstruction Status: Acute (2) Laryngeal cancer Status: Acute (3) Abdominal pain Status: Acute - Respiratory Orders Smoking Cessation: Smoking cessation has been advised. For more information, call the [place] Tobacco Quit Line at 1-514-BDJA-NOW. Certification: Further, I certify that my clinical findings support that this patient is homebound (i.e. absences from home require considerable and taxing effort and are for medical reasons or buddhist services or infrequently or short duration when for other reasons) because: Attestation: My signature below is to certify that this patient is under my care and that I, or nurse practitioner, or a physician's assistant refinery operator working with me, has a face-to -face encounter with this patient.
[2018-03-26] MEDS: Aspirin Enteric Coated 81 MG Tablet PO SCH (09:26)
[2018-03-26 10:06] VITALS: BP 117/57
--- NOTE | 2018-03-26 16:16 | Internal Med Progress Note ---
Hospitalist Progress Note - Encounter Date of Encounter: 03/26/18 Time of Encounter: 11:00 - Exam Vitals: Temp Pulse Resp BP Pulse Ox 98.6 F 65 16 117/57 97 03/26/18 10:00 03/26/18 10:00 03/26/18 10:00 03/26/18 10:00 03/26/18 10:00 Exam: General: Pt appears fatigued with normal body habitus. Head: Normocephalic. Atraumatic. Mouth: Mouth appears dry. Normal oropharynx CV: RRR. No murmurs rubs or gallops. Lungs: CTAB. No rhonchi or rales. No respiratory distress Abdomen: Bowel sounds present. Pain on palpation of the upper left quadrant. No distention. Extremities: No edema noted. Pulses 2+ Skin: Dry and Intact. No lesions or bruising noted. - Assessment and Plan (1) Small bowel obstruction Status: Acute Assessment and Plan: Presented with abdominal pain after PEG tube placement 03/22. Lactic acid normal. CT abd/pelvis showed multiple dilated jejunal loops. Partial obstruction from internal hernia vs ileus. Trace pneumoperitoneum. PEG tube in place. Tolerated full liquid and regular diet overnight. Discharge this am (2) Laryngeal cancer Status: Acute Assessment and Plan: Laryngeal squamous cell carcinoma diagnosed 02/04/18. History of smoking. Recently quit. Follows at [facility]. Had first chemotherapy treatment with cisplastin on 03/23. First radiation treatment scheduled for 03/24. (3) Abdominal pain Status: Acute Assessment and Plan: Secondary to SBO. See above. - Time Spent with Patient Total time spent is greater than 50% in coordination of care (as documented) at patient's floor/unit and/or counseling patient: Internal Medicine: Result - Labs CBC & Chem 7: 03/25/18 08:18 03/25/18 08:18 Consult Discharge Plan - Plan Instructions: Bowel Obstruction (DC) Referrals: [facility] [Other] - 03/29/18 8:00 am Heriberto Whittington MD [Primary Care Provider] - Jean David MD [Partnered Physician] - 03/29/18 8:45 am (3) Abdominal pain Qualifiers: Abdominal location: lower abdomen, unspecified Qualified Code(s): R10.30 - Lower abdominal pain, unspecified
== END 2018-03-26 11:12 | disposition home or self-care (01) | DRG 390 ==
LOC: 3ANU 11:39 → EMEROOARM 11:39 → SUATTDRO 16:59 → 3ANU 18:04
PROVIDERS: ADMIT Internal Medicine; ATTEND Student in an Organized Health Care Education/Training Program

== ENCOUNTER 2021-09-18 02:59 | Observation (INO) ==
[2021-09-18] MEDS ORDERED: Isovue-370 500 ML BOTTLE IVP ONE (03:13)
[2021-09-18 03:48] LABS: Basophils % 0.9 %; Eosinophils # 0.2 K/mcL (0.0-0.6); Eosinophils % 4.8 %; Hematocrit 45.2 % (37.5-50.1); Hemoglobin 14.7 g/dL (12.9-16.9); Immature Granulocytes % 0.2 % (0-4); Lymphocytes # 1.7 K/mcL (0.6-4.6); Lymphocytes % 38.7 %; Mean Corpuscular HGB Conc 32.5 g/dL (31.6-35.5); Mean Corpuscular Hemoglobin 30.1 pg (28.0-33.3); Mean Corpuscular Volume 92.6 fL (83.0-100.0); Monocytes # 0.8 K/mcL (0.0-1.3); Monocytes % 17.1 %; Neutrophils # 1.7 K/mcL (1.6-8.9); Platelet Count 203 K/mcL (140-400); Red Blood Count 4.88 M/mcL (4.19-5.50); Red Cell Distribution Width 12.9 % (11.5-14.5); Segmented Neutrophils % 38.3 %; White Blood Count 4.4 K/mcL (4.3-11.1)
[2021-09-18 03:55] LABS: Prothrombin Time 10.8 Seconds (9.4-12.1)
[2021-09-18 03:58] LABS: Activated Partial Thrombo Time 33.2 Seconds (26.0-36.0)
[2021-09-18 04:08] LABS: Alanine Aminotransferase 60 Units/L (7-52); Albumin 4.1 g/dL (3.5-5.7); Albumin/Globulin Ratio 0.8 (1.1-2.2); Alkaline Phosphatase 88 Units/L (34-104); Aspartate Amino Transferase 62 Units/L (13-39); BUN/Creatinine Ratio 10 (6-26); Bilirubin,Direct 0.2 mg/dL (0.0-0.2); Bilirubin,Indirect 0.7 mg/dL (0.0-1.0); Bilirubin,Total 0.9 mg/dL (0.3-1.0); Blood Urea Nitrogen 9 mg/dL (8-23); Calcium 9.9 mg/dL (8.6-10.3); Carbon Dioxide 30 mEq/L (23-29); Chloride 96 mEq/L (98-107); Globulin 5.2 g/dL (2.4-3.5); Glucose 89 mg/dL (70-105); Magnesium 1.7 mg/dL (1.6-2.6); Osmolality,Calculated 278 (280-300); Phosphorous 4.1 mg/dL (2.7-4.5); Potassium 3.3 mEq/L (3.5-5.1); Sodium 135 mEq/L (136-145); Total Protein 9.3 g/dL (6.4-8.9); eGFR For African Americans > 60 (> 60); eGFR For Non-African Americans > 60 (> 60)
[2021-09-18 05:28] LABS: Bilirubin,Urine Negative (Negative); Blood,Urine Negative (Negative); Clarity,Urine Clear (Clear); Color,Urine Light-Yellow (Yellow); Glucose,Urine (UA) Normal (Normal); Ketones,Urine Negative (Negative); Leukocyte Esterase,Urine Negative (Negative); Nitrite,Urine Negative (Negative); Protein,Urine Trace mg/dL (Neg-Trace); Specific Gravity,Urine 1.017 (1.010-1.025)
[2021-09-18] MEDS ORDERED: Gadolinium Contrast Agent (WT Based) IV PRN ×2 (06:21→12:47)
[2021-09-18] MEDS ORDERED: Lidocaine 1% 20 ML MDV INFILT ONE (06:24)
[2021-09-18] MEDS ORDERED: Morphine Sulfate 2 MG/ML SYRINGE IVP ONE (06:40)
[2021-09-18] MEDS ORDERED: Naloxone 0.4 MG/ML INJ IVP PRN (07:39)
[2021-09-18 08:07] LABS: Red Blood Cell,CSF < 2000 RBC/mcL
[2021-09-18 08:16] LABS: Glucose,CSF 70 mg/dL (40-70); Total Protein,CSF 5 mg/dL (15-45)
[2021-09-18 09:39] LABS: Appearance,CSF Clear (Clear)
[2021-09-19 03:07] LABS: Eosinophils # 0.2 K/mcL (0.0-0.6); Hematocrit 41.1 % (37.5-50.1); Hemoglobin 13.6 g/dL (12.9-16.9); Mean Corpuscular HGB Conc 33.1 g/dL (31.6-35.5); Mean Corpuscular Hemoglobin 30.2 pg (28.0-33.3); Mean Corpuscular Volume 91.1 fL (83.0-100.0); Mean Platelet Volume 9.4 fL (9.4-12.4); Neutrophils # 1.3 K/mcL (1.6-8.9); Platelet Count 185 K/mcL (140-400); Red Blood Count 4.51 M/mcL (4.19-5.50); Red Cell Distribution Width 12.9 % (11.5-14.5); White Blood Count 4.2 K/mcL (4.3-11.1)
[2021-09-19 03:30] VITALS: TEMP 98.3; O2SAT 95
[2021-09-19 03:31] LABS: Alanine Aminotransferase 42 Units/L (7-52); Albumin 3.4 g/dL (3.5-5.7); Albumin/Globulin Ratio 0.8 (1.1-2.2); Alkaline Phosphatase 71 Units/L (34-104); Aspartate Amino Transferase 38 Units/L (13-39); BUN/Creatinine Ratio 13 (6-26); Bilirubin,Total 0.8 mg/dL (0.3-1.0); Blood Urea Nitrogen 11 mg/dL (8-23); Calcium 9.5 mg/dL (8.6-10.3); Carbon Dioxide 32 mEq/L (23-29); Chloride 99 mEq/L (98-107); Globulin 4.4 g/dL (2.4-3.5); Glucose 136 mg/dL (70-105); Osmolality,Calculated 281 (280-300); Potassium 4.2 mEq/L (3.5-5.1); Sodium 135 mEq/L (136-145); Total Protein 7.8 g/dL (6.4-8.9); eGFR For African Americans > 60 (> 60); eGFR For Non-African Americans > 60 (> 60)
[2021-09-19 05:00] LABS: Lymphocytes # 1.9 K/mcL (0.6-4.6); Monocytes # 0.9 K/mcL (0.0-1.3)
[2021-09-19 05:02] LABS: Platelet Estimate Normal (Normal)
[2021-09-19] MEDS ORDERED: *HR* Enoxaparin 30 MG/0.3 ML SYRINGE SQ SCH (06:00)
[2021-09-19 07:35] VITALS: BP 122/77; PULSE 66
[2021-09-19] MEDS ORDERED: predniSONE 20 MG TABLET PO ONE (07:45)
== END 2021-09-19 10:46 | disposition short-term general hospital (02) ==
LOC: EMEROOARM 02:59 → 3BNU 02:59 → SUATTDRO 06:59 → 3BNU 07:47
PROVIDERS: ADMIT Internal Medicine; ATTEND Internal Medicine